=== PATIENT | male | born 1950 | race Caucasian/White ===

== ENCOUNTER 2016-04-17 08:22 | Outpatient (CLI) | payer MEDICARE | END 2016-04-17 08:23 | disposition home or self-care (01) | DX: E78.2 Mixed hyperlipidemia (principal); Z79.899 Other long term (current) drug therapy ==

== ENCOUNTER 2016-06-12 12:11 | Outpatient (CLI) | payer MEDICARE | END 2016-06-12 12:12 | disposition home or self-care (01) | DX: E78.2 Mixed hyperlipidemia (principal); Z79.899 Other long term (current) drug therapy ==

== ENCOUNTER 2017-06-19 08:00 | Outpatient (CLI) | payer MEDICARE ==
[2017-06-19 13:06] LABS: BASOPHILS % (AUTO) 0.6 %; EOSINOPHILS # (AUTO) 0.1 10^3/uL (0.0-0.7); EOSINOPHILS % (AUTO) 1.3 %; HGB - HEMOGLOBIN 14.1 g/dL (14.0-18.0); LYMPHOCYTES # (AUTO) 1.3 10^3/uL (1.5-3.5); LYMPHOCYTES % (AUTO) 28.2 %; MEAN CORPUSCULAR HEMOGLOBIN 31.1 pg (27.0-31.0); MEAN CORPUSCULAR HGB CONC 34.3 g/dL (32.0-36.0); MEAN CORPUSCULAR VOLUME 90.7 fL (80.0-94.0); MEAN PLATELET VOLUME 8.6 fL (7.4-11.4); MONOCYTES # (AUTO) 0.3 10^3/uL (0.0-1.0); MONOCYTES % (AUTO) 7.2 %; NEUTROPHILS # (AUTO) 2.9 10^3/uL (1.5-6.6); NEUTROPHILS % (AUTO) 62.7 %; PLT - PLATELET COUNT 220 10^3/uL (130-450); RED BLOOD COUNT 4.53 10^6/uL (4.70-6.10); RED CELL DISTRIBUTION WIDTH 13.3 % (12.0-15.0); WHITE BLOOD COUNT 4.7 x10^3/uL (4.8-10.8)
[2017-06-19 13:32] LABS: ALBUMIN 4.6 g/dL (3.2-5.5); ALBUMIN/GLOBULIN RATIO 1.7 (1.0-2.2); ALKALINE PHOSPHATASE 63 IU/L (42-121); ALT ALANINE AMINOTRANSFERASE 23 IU/L (10-60); AST ASPARTATE AMINOTRANSFERASE 24 IU/L (10-42); BILIRUBIN,TOTAL 0.6 mg/dL (0.2-1.0); BUN - BLOOD UREA NITROGEN 20 mg/dL (6-20); CALCIUM 9.5 mg/dL (8.5-10.3); CARBON DIOXIDE - CO2 32 mmol/L (21-32); CHLORIDE 99 mmol/L (101-111); CHOL/HDL RATIO 3.6 (<5.0); CHOLESTEROL 229 mg/dL; GFR - MDRD 75 (>89); GLUCOSE 103 mg/dL (70-100); HDL CHOLESTEROL 64 mg/dL; LDL CHOLESTEROL,CALCULATED 133 mg/dL; LDL/HDL RATIO 2.1 (<3.6); SODIUM 136 mmol/L (135-145); TOTAL PROTEIN 7.3 g/dL (6.7-8.2); VLDL CHOLESTEROL 32 mg/dL
== END 2017-06-19 08:01 ==
LOC: LAB.R 08:00
PROVIDERS: ATTEND Internal Medicine
DX: E78.5 Hyperlipidemia, unspecified (principal); E03.9 Hypothyroidism, unspecified; I10 Essential (primary) hypertension
CPT/HCPCS: 80053; 80061; 83721; 84443; 85025

== ENCOUNTER 2017-08-08 13:14 | Outpatient (CLI) | payer MEDICARE ==
[2017-08-08 15:18] VITALS: BP 130/62
--- NOTE | 2017-08-08 16:36 | CARDIAC PROCEDURE NOTE ---
DATE OF SERVICE: 08/08/2017 Physician: PAT Andrade PRIMARY CARE AND ORDERING PHYSICIAN: Dr. Scott Saul. PROCEDURE: Stress echocardiogram. DESCRIPTION OF PROCEDURE SYMPTOMS: Chest pain with exertion, feeling like dull squeeze. CARDIAC RISK FACTORS 1. Age. 2. Hypertension. 3. Hyperlipidemia. PREVIOUS CARDIAC PROCEDURES: None. CURRENT SYMPTOMATOLOGY: Moderately active man who feels well today. CLINICAL HISTORY: A 67-year-old male without known coronary artery disease. INITIAL RESTING VITAL SIGNS: Blood pressure 138/66, heart rate 53, height 74 inches, weight 169 pounds, BMI 21.3. PROCEDURE AND FINDINGS: The patient's identity and date verified. Consent signed. After resting echocardiogram images were obtained, the patient performed treadmill exercise, using a Foster protocol completing 8 minutes, 01 seconds, and an estimated workload of 10.16 metabolic equivalence. Maximal blood pressure was 230/60 with a heart rate of 158 beats per minute or 102% of maximum predicted heart rate for age. The blood pressure response to exercise was abnormal. His SBP elevated 50 points with each stage. The patient stopped because he was tiring and beginning to breathe hard. He had no chest pain. Resting ECG demonstrated sinus bradycardia with no other abnormality. On exercise, there was a 1.[address] segment depression in leads II, III, and aVF. There was no ectopy. Post-exercise images were immediately obtained on cessation of exercise. FINAL IMPRESSION 1. Good quality test. 2. Positive ECG signs of ischemia, test incomplete, awaiting echocardiographic report. 3. Negative stress test clinically for angina. 4. No ectopy. 5. Abnormal blood pressure response. 6. Hypertensive with elevated SBP elevations per stage. 7. Dr. Dawn's office notified of positive test with no chest pain. TD: 08/08/2017 15:43
== END 2017-08-08 13:15 | disposition home or self-care (01) ==
LOC: DI 13:14
PROVIDERS: ATTEND Internal Medicine
DX: R07.89 Other chest pain (principal); R94.39 Abnormal result of other cardiovascular function study; I10 Essential (primary) hypertension; E78.5 Hyperlipidemia, unspecified
CPT/HCPCS: 93351

== ENCOUNTER 2017-11-18 07:51 | Outpatient (CLI) | payer MEDICARE | END 2017-11-18 07:52 | disposition home or self-care (01) | LOC: LAB.F 07:51 | PROVIDERS: ATTEND Internal Medicine | DX: E78.5 Hyperlipidemia, unspecified (principal) | CPT/HCPCS: 36415; 83721 ==